=== PATIENT | female | born 1985 | race Caucasian/White ===

== ENCOUNTER 2021-10-24 15:36 | Emergency (ER) | payer SELFPAY ==
[2021-10-24] MEDS ORDERED: Morphine 4 MG/ML VIAL IVPUSH ONE (15:45)
[2021-10-24 16:16] LABS: BLOOD UREA NITROGEN,BUN 10 mg/dL (7.0-18.0); CARBON DIOXIDE,CO2 23.3 mmol/L (21.0-32.0); CHLORIDE,CL 107 mmol/L (98-107); GLUCOSE RANDOM 92 mg/dL (74-106); LIPASE 56 U/L (73-393); POTASSIUM,K 3.7 mmol/L (3.5-5.1); SODIUM,NA 139 mmol/L (136-145)
[2021-10-24 16:28] LABS: ESTIMATED GFR 86 mL/min (>60)
[2021-10-24] MEDS ORDERED: Iopamidol 755 MG/ML 500 ML Multipack Bottle IVPUSH STA (18:15)
== END 2021-10-24 18:42 | disposition home or self-care (01) ==
LOC: MW.ED 15:36
DX: S10.93XA Contusion of unspecified part of neck, initial encounter (principal); S20.112A Abrasion of breast, left breast, initial encounter; S20.412A Abrasion of left back wall of thorax, initial encounter; T71.9XXA Asphyxiation due to unspecified cause, initial encounter; Y04.0XXA Assault by unarmed brawl or fight, initial encounter
CPT/HCPCS: 36415; 70450; 70496; 70498; 71045; 72125; 72128; 74177; 80053; 80307; 83690; 84703; 85025; 85610; 96374; 99285; J2270; Q9967